=== PATIENT | male | born 1975 | race African-American/Black ===

== ENCOUNTER 2016-08-03 14:29 | Emergency (ER) | payer OTHER ==
[2016-08-03 14:05] LABS: URINE SOURCE CLEAN CATCH
[2016-08-03 14:18] LABS: URINE APPEARANCE CLEAR; URINE BILIRUBIN NEG (NEG); URINE BLOOD NEG (NEG); URINE COLOR YELLOW; URINE GLUCOSE NEG (NEG); URINE KETONE TRACE (NEG); URINE LEUKOCYTE ESTERASE TRACE (NEG); URINE NITRATE NEG (NEG); URINE PROTEIN 1+ (NEG); URINE SPECIFIC GRAVITY 1.026 (1.003-1.035)
[2016-08-03 14:22] LABS: CULTURE INDICATED? YES; URBCS1 AUWI 0-2 /[HPF] (0-2); URINE BACTERIA AUWI NEG (NEGATIVE); URINE SQUAMOUS EPITHELIAL CELL NONE SEEN /[HPF]
[2016-08-06 16:40] LABS: CHLAMYDIA TRACH Not Detected (Not Detected); N GONOR Not Detected (Not Detected)
== END 2016-08-03 16:08 | disposition home or self-care (01) ==
LOC: CFTX 14:29
PROVIDERS: Nurse Practitioner
DX: N34.2 Other urethritis (principal); F17.210 Nicotine dependence, cigarettes, uncomplicated
CPT/HCPCS: 81003; 87086; 87491; 87591; 96372; 99283; J0696